=== PATIENT | female | born 1980 ===

== ENCOUNTER 2016-10-13 08:38 | Emergency (ER) | payer OTHER ==
[2016-10-13 08:43] VITALS: RESP 18
[2016-10-13] MEDS ORDERED: Penicillin G Benzathine 1.2 Mill Unit/2 ml Syr IM ONE ×2 (09:19→09:27)
--- NOTE | 2016-10-13 09:22 | C.PDOC ---
History Of Present Illness The patient, a 36 y/o female, presents to the ED for evaluation of sore throat which began around 3 days ago. Patient also reports fever and nonproductive cough. Patient denies any other associated symptoms. SORE THROAT X 3 DAYS. +FEVER. BELTING CUTTER COUGH. NO OTHER ASSOC SX EXAM +B/L PHARYNGITIS W SWELL, EXUDATE. UVULA MIDLINE. NO STRIDOR, DROOLING. NECK SUPPLE B/L ANT CERV NODES W LOCAL TEND MOBILE REMAINDER NEG Time Seen by Provider: 10/13/16 09:14 Chief Complaint (Nursing): ENT Problem Past Medical History Reviewed: Historical Data, Vital Signs Vital Signs: Last Vital Signs Temp 100.9 F H 10/13/16 09:25 Pulse 116 H 10/13/16 09:25 Resp 18 10/13/16 09:25 BP 112/70 10/13/16 09:25 Pulse Ox 99 10/13/16 09:25 - Medical History PMH: No Chronic Diseases Surgical History: No Surg Hx Family History: States: Unknown Family Hx - Social History Hx Alcohol Use: No Hx Substance Use: No - Immunization History Hx Tetanus Toxoid Vaccination: No Hx Influenza Vaccination: No Hx Pneumococcal Vaccination: No Review Of Systems Except As Marked, All Systems Reviewed And Found Negative. Constitutional: Positive for: Fever. Negative for: Chills ENT: Positive for: Throat Pain Physical Exam - Physical Exam Appears: Non-toxic, No Acute Distress Skin: Normal Color, Warm, Dry Head: Atraumatic, Normacephalic Eye(s): bilateral: Normal Inspection Ear(s): Bilateral: Normal Nose: Normal, No Discharge Oral Mucosa: Moist Throat: Exudate, No Drooling, Other (+b/l pharyngitis with swelling, exudate. uvula at midline. no stridor) Neck: Normal ROM, Supple Lymphatic: Other (+b/l anterior cervical node tenderness, mobile ) Chest: Symmetrical, No Deformity, No Tenderness Cardiovascular: Rhythm Regular, No Murmur Respiratory: Normal Breath Sounds, No Rales, No Rhonchi, No Wheezing Back: Normal Inspection, No Vertebral Tenderness, No Paraspinal Tenderness Extremity: Normal ROM, Capillary Refill (less than 2 seconds ) Neurological/Psych: Oriented x3, Normal Speech, Normal Cognition Gait: Steady ED Course And Treatment O2 Sat by Pulse Oximetry: 100 (on RA) Pulse Ox Interpretation: Normal Progress Note: Patient received Motrin PO, Tylenol PO, and Penicillin IM. Disposition Counseled Patient/Family Regarding: Diagnosis, Need For Followup, Rx Given - Disposition Referrals: [facility] [Outside] [facility] [Outside] Disposition: HOME/ ROUTINE Disposition Time: 09:21 Condition: IMPROVED Prescriptions: Acetaminophen [Tylenol Extra Strength] 2 tab PO Q6 #30 tablet Dexamethasone 12 mg PO ONCE #2 tablet Ibuprofen [Motrin] 600 mg PO Q6 #30 tab Instructions: Strep Throat (ED) Forms: Work Excuse Print Language: IRISH - Clinical Impression Clinical Impression: Pharyngitis - Scribe Statement The provider has reviewed the documentation as recorded by the Scribe (Katey Dee) Provider Attestation: All medical record entries made by the Scribe were at my direction and personally dictated by me. I have reviewed the chart and agree that the record accurately reflects my personal performance of the history, physical exam, medical decision making, and the department course for this patient. I have also personally directed, reviewed, and agree with the discharge instructions and disposition.
[2016-10-13 09:28] VITALS: BP 112/70; PULSE 116; TEMP 100.9
[2016-10-13 13:38] VITALS: O2SAT 100
== END 2016-10-13 09:53 | disposition home or self-care (01) ==
LOC: C.ER 08:38
DX: J02.9 Acute pharyngitis, unspecified (principal)
CPT/HCPCS: 96372; 99284; J0561